=== PATIENT | male | born 1965 | race Caucasian/White ===

== ENCOUNTER 2019-12-21 13:34 | Outpatient (CLI) | payer BC, OTHER ==
--- NOTE | 2019-12-21 14:26 | RAD ---
EXAM: XR Sinuses Torres View Only PROVIDED CLINICAL HISTORY: MRI clearance COMPARISON: None FINDINGS: Single frontal view of the orbits was obtained for the purposes of exclusion of metallic foreign body in the region of the orbits. There is no evidence for such. IMPRESSION: As above.
--- NOTE | 2019-12-21 18:54 | MRI ---
MRI THORACIC SPINE WITHOUT CONTRAST: 12/21/19 INDICATIONS: Mid scapular pain and mid back pain. The thoracic vertebrae maintain height and alignment. Degenerative disc and end plate changes are noted at the C7-T1 level. There is a small disc bulge/pro trusion at this level which effaces the anterior subarachnoid space. The disc spaces of the thoracic spine are preserved. Mild asymmetric disc bulge on the right at the T5-6 level best seen on sagittal images. This mildly e ffaces the anterior subarachnoid space on the right. No cord impingement. No other significant disc bulge or protrusion at any of the thoracic levels. Cord signal appears norm al. No central canal or foraminal stenosis. IMPRESSION: 1. Posterior disc bulge and spondylosis at C7-T1 flattens the thecal sac and effaces the anterio r subarachnoid space. 2. Small asymmetric disc bulge paracentrally to the right at T5-6 as described above. 3. MRI thoracic spine otherwise unremarkable. POS: AGW
--- NOTE | 2019-12-21 21:22 | MRI ---
MRI OF THE CERVICAL SPINE WITHOUT CONTRAST: 12/21/19 INDICATIONS: Interscapular pain. Cervical pain. No comparison studies. Motion artifact degrades the images. Cervical vertebrae maintain normal height and alignment. The dis c spaces are preserved throughout the cervical spine. Vertebral body signal appears normally preserve d. No significant disc bulge or spondylosis seen at C2-3, C3-4, or C4-5 levels. No central canal or fora lewis stenosis at any of these levels. C5-6: Mild posterior disc bulge and spondylosis flatten the thecal sac and efface the anterior subara chnoid space. No significant cord impingement. No significant foraminal stenosis apparent. C6-7: Disc bulge and spondylosis flatten the anterior thecal sac and efface the anterior subarachnoid space centrally. No significant cord compression or central canal stenosis. No significant foraminal stenosis. C7-T1: There is posterior disc bulge and spondylosis which is more pronounced paracentrally to the le ft. This flattens the anterior thecal sac on the left and appears to displace the traversing left T1 nerve root. There is encroachment into the left foramina due to this disc osteophyte complex on the l eft. This may abut the anterior cord on the left at this level. The cervical cord signal is normally maintained. IMPRESSION: 1. Posterior disc bulge and spondylosis seen at C5-6 and C6-7 and C7-T1 levels as described abov e. Possible left foraminal encroachment and nerve root displacement on the left at C7-T1 as described . Motion artifact degrades the study. Consider CT cervical spine to further evaluate. POS: WM
== END 2019-12-21 13:35 | disposition home or self-care (01) ==
LOC: BICMRI 13:34
PROVIDERS: ATTEND Neurological Surgery
DX: M54.89 Other dorsalgia (principal); M47.812 Spondylosis without myelopathy or radiculopathy, cervical region; M47.813 Spondylosis without myelopathy or radiculopathy, cervicothoracic region; M50.222 Other cervical disc displacement at C5-C6 level; M51.24 Other intervertebral disc displacement, thoracic region
CPT/HCPCS: 70210; 72141; 72146

== ENCOUNTER 2020-01-06 13:06 | Outpatient (CLI) | payer OTHER ==
--- NOTE | 2020-01-06 13:37 | RAD ---
RADIOGRAPH CERVICAL SPINE 5 VIEWS: DATE: 01/06/2020 HISTORY: 54-year-old male with cervicalgia TECHNIQUE: Lateral, AP, swimmer's, open-mouth, and Fuchs, views. FINDINGS: Vertebral body heights are maintained. There is high-grade left-sided facet DJD at the mid and lower levels, most severely at C5-6, at which the MRI demonstrates bone marrow edema involving the left C5-6 facet complex. Mild disc space narrowing at C7-T1. The rest of the disc spaces are maintained. M ild grade 1 anterolisthesis of C5 on C6 due to facet DJD. No prevertebral soft tissue swelling. Atlantoaxial joints demonstrate no high-grade DJD. IMPRESSION: Cervical spondylosis consisting of left sided high-grade facet arthritis.
== END 2020-01-06 13:07 | disposition home or self-care (01) ==
LOC: BICRAD 13:06
PROVIDERS: ATTEND Neurological Surgery
DX: M54.2 Cervicalgia (principal); M47.812 Spondylosis without myelopathy or radiculopathy, cervical region
CPT/HCPCS: 72040